=== PATIENT | female | born 1965 | race Caucasian/White ===

== ENCOUNTER → 2017-09-30 | Outpatient (CLI) | payer BC ==
--- NOTE | 2017-09-30 13:13 | US ---
EXAMINATION TYPE: US pelvic complete DATE OF EXAM: 09/30/2017 COMPARISON: NONE CLINICAL HISTORY: N93.8 Dysfunctional Uterine Bleeding. TECHNIQUE: . Transabdominal sonographic images of the pelvis were acquired. Transvaginal sonographi c images were medically necessary to better assess the following anatomy: EXAM MEASUREMENTS: Uterus: 10.8 x 5.3 6.4 cm Endometrial Stripe: 1.4 cm Right Ovary: 1.9 x 1.3 x 1.3 cm Left Ovary: 2.6 x1.4 x 1.4 cm 1. Uterus: multiple probable fibroids noted largest and most well-defined measuring 3.0 x 2.6 x 2.3 cm 2. Endometrium: Thickened 3. Right Ovary: wnl 4. Left Ovary: wnl 5. Bilateral Adnexa: wnl 6. Posterior cul-de-sac: wnl IMPRESSION: 1. Endometrial thickening measuring up to 1.4 cm. This could relate to endometrial hyperplasia, endom etrial carcinoma or endometrial polyp. Further evaluation with sonohysterogram or direct visualizatio n could be performed. 2. Enlarged and heterogenous uterus containing multiple probable leiomyomas with the largest measurin g 3.0 cm.
== END ==
LOC: RADUSWWP 12:22
PROVIDERS: ATTEND Family Medicine
DX: R93.8 Abnormal findings on diagnostic imaging of other specified body structures (principal); N85.2 Hypertrophy of uterus; N85.8 Other specified noninflammatory disorders of uterus
CPT/HCPCS: 76856

== ENCOUNTER → 2017-12-03 | Outpatient (CLI) | payer BC ==
[2017-12-03 11:20] LABS: HCT 31.6 % (34.0-46.0); HGB 10.4 gm/dL (11.4-16.0); Hypochromasia Moderate; MCH 25.7 pg (25.0-35.0); MCHC 32.7 g/dL (31.0-37.0); MCV 78.6 fL (80.0-100.0); Mean Platelet Volume 8.4; Platelet Count 335 k/uL (150-450); RBC 4.02 m/uL (3.80-5.40); RDW 15.2 % (11.5-15.5); WBC 5.8 k/uL (3.8-10.6)
[2017-12-03 11:28] LABS: Anion Gap 13 mmol/L; Blood Urea Nitrogen 19 mg/dL (7-17); Carbon Dioxide 18 mmol/L (22-30); Chloride 110 mmol/L (98-107); Glucose 91 mg/dL (74-99); Potassium 4.5 mmol/L (3.5-5.1); Sodium 141 mmol/L (137-145)
[2017-12-03 12:12] LABS: Basophils # (M) 0.06 k/uL (0-0.2); Eosinophils # (M) 0.12 k/uL (0-0.7); Monocytes # (M) 0.29 k/uL (0-1.0); Neutrophils # (M) 3.54 k/uL (1.3-7.7); Neutrophils % (M) 61 %; Nucleated Red Blood Cells 0 /100 WBC (0-0); Total Cells Counted 100
== END | disposition home or self-care (01) ==
LOC: LABWHC1 10:23
PROVIDERS: ATTEND Obstetrics & Gynecology
DX: Z01.812 Encounter for preprocedural laboratory examination (principal); N81.4 Uterovaginal prolapse, unspecified; D25.9 Leiomyoma of uterus, unspecified
CPT/HCPCS: 36415; 80051; 82565; 82947; 84520; 85025; 87086

== ENCOUNTER 2017-12-10 05:43 | Observation (INO) | payer BC ==
[2017-11-29 15:47] VITALS: BMI 25.3
[~2017-12-10 05:43] MED LIST: DEXAMETHASONE SOD PHOSPHATE 10 MG/ML 1 ML VIAL IV ONE; MIDAZOLAM 2 MG/2 ML VIAL IV PRN; ONDANSETRON ODT 4 MG TAB PO ONE; SCOPOLAMINE 1.5MG/72HR PATCH TRANSDERM ONE; ceFAZolin IN SWFI 2 GM/20 ML SYRINGE IVP ONE; fentaNYL (PF) 50 MCG/ML 2 ML AMP IV PRN
[2017-12-10] MEDS: LACTATED RINGERS 1,000 ML IV SCH ×3 (06:41→22:58)
[2017-12-10] MEDS ORDERED: LIDOCAINE 1% 20 ML VIAL (10MG/ML) FOR IV START INTRADERMA ONE (06:41)
[2017-12-10] MEDS ORDERED: ONDANSETRON 4 MG/2 ML VIAL IVP ONE (06:42)
[2017-12-10] MEDS ORDERED: fentaNYL (PF) 50 MCG/ML 2 ML AMP ONE (07:40)
[2017-12-10] MEDS ORDERED: PROPOFOL 10 MG/ML 20 ML VIAL IV ONE (07:40)
[2017-12-10] MEDS ORDERED: LIDOCAINE 1% INJ 10MG/ML (20 ML MDV) ONE (07:40)
[2017-12-10] MEDS ORDERED: MORPHINE SULFATE (PF) 0.3 MG/0.3 ML SYR ONE (07:40)
[2017-12-10] MEDS ORDERED: MIDAZOLAM 2 MG/2 ML VIAL ONE (07:40)
[2017-12-10] MEDS ORDERED: NALOXONE 0.4 MG/ML 1 ML VIAL IV PRN (07:58)
[2017-12-10] MEDS ORDERED: MORPHINE SULFATE 4 MG/ML SYRINGE IVP PRN (07:58)
[2017-12-10] MEDS ORDERED: ONDANSETRON 4 MG/2 ML VIAL IVP PRN (07:58)
[2017-12-10] MEDS ORDERED: KETOROLAC 30 MG/ML 1 ML VIAL IVP PRN ×2 (07:58→09:12)
[2017-12-10] MEDS ORDERED: BACITRACIN 500 UNIT/GM OINT 28.4 GM TUBE TOPICAL ONE (08:03)
[2017-12-10] MEDS ORDERED: VASOPRESSIN 20 UNIT/ML 1 ML VIAL SQ ONE (08:04)
[2017-12-10] MEDS ORDERED: LACTATED RINGERS 1,000 ML IV ONE (08:47)
--- NOTE | 2017-12-10 09:11 | P.OP ---
Date of Procedure: 12/10/17 Preoperative Diagnosis: Grade 3-4 rectocele, grade 2 uterine prolapse. Postoperative Diagnosis: Same, normal-appearing ovaries bilaterally Procedure(s) Performed: Vaginal hysterectomy, rectocele repair Anesthesia: spinal Surgeon: Alison Dangelo Gear Roller #1: Reese Gunn Estimated Blood Loss (ml): 100 IV fluids (ml): 850 Urine output (ml): 200 Pathology: other Condition: stable Disposition: PACU Description of Procedure: Patient is brought to the operating suite. She is given a spinal with Duramorph per the anesthesia staff, then positioned in the dorsal lithotomy position. The cervix, vagina, perineal bodies and lower abdomen are all prepped and draped in the usual sterile fashion. The appropriate timeout is performed to assure proper patient and procedural identification. Antibiotics are given. Urine hCG is negative. Weighted speculum was placed into the vagina and the anterior lip of the cervix is grasped with a double-tooth tenaculum. The cervix is injected circumferentially with a dilute Pitressin solution. Bladder is drained for 200 mL of clear yellow urine. A scalpel is used to incise circumferentially with a V like positioning at 6:00. A sponge rolled finger is used to sweep the mucosa from the underlying fascial plane. Peritoneum was easily entered at 6:00 and suture tied with 2-0 Vicryl. This is held with a hemostat and the large billed speculum was placed. At all times care is taken to keep the mucosa swept well from the underlying cook, to avoid any bladder and/or ureteral injury. Ina clamps are used in the uterosacral ligament complex these are clamped, cut, tied and held laterally with hemostats. Uterine vasculature is identified, clamped cut and suture ligated using 0 Vicryl suture. 2 additional pedicles are taken superior to the vessels. Anterior peritoneum is entered at 12:00. The uterus is " walked out", Ina clamps are used across the final pedicles. Hemostasis is excellent. 0 Vicryl suture is used to tie, flashed, and retied both pedicles. Bilateral ovaries are inspected and noted to be within normal limits, and therefore left in situ per her wishes. The speculum is then changed, the 2-0 Vicryl suture is brought around in a pursestring fashion. The previously held uterosacral cardinal ligament complex these are then brought across to incorporate the opposite complex as well as vaginal mucosa. 3 additional xblzmm-fs-kszsm sutures are used on the vaginal mucosa for final cuff closure. The rectocele repair is then started. Allis clamps are used on the perineal body at 5:00 and 7:00. A scalpel is used to remove a triangular portion of tissue. The posterior vaginal mucosa is injected with dilute Pitressin. Metzenbaum scissors are used in the midline to underlying the mucosa to the apex of the defect. The mucosa is opened with Metzenbaum scissors. The edges of the mucosa are held in a fanlike fashion with Allis clamps. A sponge rolled finger is used to sweep the fascial edges from the overlying mucosa. Metzenbaum scissors are used to trim the mucosa. 2- 0 Vicryl sutures used in the midline to bring the fascial edges together, thereby completely eliminating the rectocele. Approximation is excellent. 2-0 Vicryl is used then in a running locking stitch to close the posterior mucosa. 3 pairs finished in an episiotomy-like fashion. The vagina is clean and dry. It is packed with one-inch iodophor gauze with basic tracing. Terry is noted to be draining clear urine. The rectal exam is performed to assure no suture material in the rectal mucosa, and this is negative. Patient is brought back to the recovery room in very good condition with stable vital signs including a pulse of 69, blood pressure 95/48, 99% O2 saturation.
[2017-12-10] MEDS ORDERED: ZOLPIDEM 5 MG TAB PO PRN (09:12)
[2017-12-10] MEDS ORDERED: SIMETHICONE 80 MG CHEWABLE PO PRN (09:12)
[2017-12-10] MEDS ORDERED: METOCLOPRAMIDE 5 MG/ML 2 ML VIAL IVP PRN (09:12)
[2017-12-10] MEDS ORDERED: Acetaminophen-Codeine 300-30mg TAB PO PRN (09:12)
[2017-12-10] MEDS ORDERED: IBUPROFEN 600 MG TAB PO PRN (09:12)
[2017-12-10] MEDS: diphenhydrAMINE 50 MG/ML 1 ML VIAL IVP PRN ×2 (09:23→19:40)
[2017-12-10] MEDS ORDERED: NALBUPHINE 10 MG/ML AMPUL IV ONE (13:45)
[2017-12-10] MEDS ORDERED: ALPRAZolam 0.25 MG TAB PO PRN (13:56)
[2017-12-10] MEDS ORDERED: busPIRone HCl 10 MG TAB PO SCH (21:45)
[2017-12-10] MEDS ORDERED: TOPIRAMATE 25 MG TAB PO SCH (21:45)
[2017-12-10] MEDS ORDERED: lamoTRIgine 100 MG TAB PO SCH (21:45)
[2017-12-11] MEDS: diphenhydrAMINE 50 MG/ML 1 ML VIAL IVP PRN (03:26)
[2017-12-11 03:47] VITALS: RESP 16
--- NOTE | 2017-12-11 05:54 | P.PN ---
Progress Note - Text Progress Note Date: 12/11/17 Patient is status post vaginal hysterectomy postop day 1 with Intrathecal Duramorph. This morning, vital signs are stable, VAS is 3/10. The patient endorses minimal itching, denies nausea, vomiting, urinary retention, excessive sedation, respiratory depression, or headache. Patient has no complaints of back pain. Pain medications per primary service; please call back with any further questions.
[2017-12-11 06:17] VITALS: TEMP 98.2
--- NOTE | 2017-12-11 08:04 | P.DS ---
Providers Date of admission: 12/10/17 23:34 Expected date of discharge: 12/11/17 Attending physician: Alison Dangelo Primary care physician: Jamaal Worleyhven [facility] Course: This is a 52-year-old white female who presented with a history of increasingly symptomatic rectocele and uterine prolapse. After thorough consultation she elected to proceed with surgery. She was admitted under my care and underwent vaginal hysterectomy and rectocele repair on 12/10/2017. She did well intraoperatively, ovaries appeared normal and were left in situ per her wishes. She did receive a spinal with Duramorph. Please see dictated operative note for details. This morning the patient is doing well. She is voiding, ambulating and passing flatus without difficulty. Vital signs are stable and she is afebrile. Vaginal packing has been removed. Pain is well controlled. There is scant vaginal drainage. She is tolerating regular food and has showered. Extremities are negative, chest is clear, no CVA tenderness, soft abdomen with active bowel sounds. Patient is judged to be in very good condition for discharge home. She will follow-up with me in the office in 2 weeks. I have reminded her no intercourse , tampons or douching. She will use raoh-htu-bkvignp ibuprofen products as needed for pain, 3 200 mg pills, every 6 hours as needed. No heavy lifting, no driving for 2 weeks. Call with any pain not alleviated by ifot-jpi-deqssft products, with any vaginal bleeding, with any difficulties with bowel or bladder , or indeed with any concerns. Patient Condition at Discharge: Good Plan - Discharge Summary Discharge Rx Participant: Yes New Discharge Prescriptions: No Action lamoTRIgine [LaMICtal] 300 mg PO HS Topiramate [Topamax] 50 mg PO HS ALPRAZolam [Xanax] 0.25 mg PO HS PRN PRN Reason: sleeping busPIRone HCl [Buspar] 10 mg PO HS Discharge Medication List ALPRAZolam [Xanax] 0.25 mg PO HS PRN 12/03/17 [History] Topiramate [Topamax] 50 mg PO HS 12/03/17 [History] busPIRone HCl [Buspar] 10 mg PO HS 12/03/17 [History] lamoTRIgine [LaMICtal] 300 mg PO HS 12/03/17 [History] Follow up Appointment(s)/Referral(s): Alison Dangelo MD [STAFF PHYSICIAN] - 2 Weeks Patient Instructions/Handouts: Hysterectomy (DC), Hysterectomy (GEN)
[2017-12-11 09:21] VITALS: BP 99/58; PULSE 71
== END 2017-12-11 13:24 | disposition home or self-care (01) ==
LOC: OR 05:43 → 6PED 09:08 → OR 23:33 → 6PED 23:34
PROVIDERS: ADMIT Obstetrics & Gynecology; ATTEND Obstetrics & Gynecology
DX: N81.3 Complete uterovaginal prolapse (principal); D25.0 Submucous leiomyoma of uterus; N80.0 Endometriosis of uterus; D26.1 Other benign neoplasm of corpus uteri; J45.909 Unspecified asthma, uncomplicated; F41.9 Anxiety disorder, unspecified; K21.9 Gastro-esophageal reflux disease without esophagitis; Z79.899 Other long term (current) drug therapy; Z90.49 Acquired absence of other specified parts of digestive tract; Z91.048 Other nonmedicinal substance allergy status
CPT/HCPCS: 58260; 81025; 86900; 86901; 86850; 88307; G0378 ×2; J2250; J1200 ×2; J1100; J2300; J2405; J2001; J2274; J3010; J1885; J2704; J0690

== ENCOUNTER 2022-12-12 12:40 | Emergency (ER) | payer BC ==
[2022-12-12] MEDS ORDERED: SODIUM CHLORIDE 0.9% 500 ML 500 ML IV STA (13:23)
[2022-12-12] MEDS ORDERED: KETOROLAC 15 MG/ML 1 ML VIAL IVP STA (13:24)
--- NOTE | 2022-12-12 13:29 | ED ---
Nausea/Vomiting/Diarrhea HPI - General Chief complaint: Nausea/Vomiting/Diarrhea Stated complaint: Abd Pain, back pain Time Seen by Provider: 12/12/22 13:17 Source: patient, RN notes reviewed, old records reviewed Mode of arrival: ambulatory Limitations: no limitations - History of Present Illness Initial comments: This is a well-appearing 57-year-old female who presents ambulatory with complaints of right flank pain and suprapubic abdominal pain that started this morning after taking her son to school. Patient states that she does have nausea with multiple episodes of soft brown diarrhea 5 this morning. Denies any fevers. Patient states that she does take medication for her mood disorder but does not remember the name of the medication. States that she recently started taking it twice a day. Patient states that she does have a history of cholecystectomy, GERD and asthma. MD complaint: nausea, diarrhea, abdominal pain -: hour(s) Description of Diarrhea: other (soft brown) Associated Abdominal Pain: Yes (suprapubic) Severity scale (1-10): 10 Quality: constant Consistency: constant Improves with: bowel movement Worsens with: other (palpation) Associated Symptoms: other (right flank pain) - Related Data Home Medications Medication Instructions Recorded Confirmed Topiramate [Topamax] 100 mg PO HS 12/12/22 12/12/22 busPIRone HCl [Buspar] 5 mg PO HS 12/12/22 12/12/22 lamoTRIgine 200 mg PO HS 12/12/22 12/12/22 Allergies Allergy/AdvReac Type Severity Reaction Status Date / Time adhesive tape Allergy Itching,red Verified 12/12/22 14:54 ness Review of Systems ROS Statement: Those systems with pertinent positive or pertinent negative responses have been documented in the HPI. ROS Other: All systems not noted in ROS Statement are negative. Past Medical History Past Medical History: Asthma, GERD/Reflux History of Any Multi-Drug Resistant Organisms: None Reported Past Surgical History: Cholecystectomy, Tubal Ligation Additional Past Surgical History / Comment(s): tubal reversal, laparoscopy Past Anesthesia/Blood Transfusion Reactions: Motion Sickness, Postoperative Nausea & Vomiting (PONV) Additional Past Anesthesia/Blood Transfusion Reaction / Comment(s): trouble waking up Past Psychological History: Anxiety, Depression Smoking Status: Never smoker Past Alcohol Use History: Occasional Past Drug Use History: None Reported - Past Family History Mother Family Medical History: No Reported History General Exam Limitations: no limitations General appearance: alert, in no apparent distress Head exam: Present: atraumatic, normocephalic, normal inspection Eye exam: Present: normal appearance. Absent: scleral icterus, conjunctival injection, periorbital swelling Neck exam: Present: full ROM. Absent: tenderness, meningismus Respiratory exam: Absent: respiratory distress, accessory muscle use Cardiovascular Exam: Present: regular rate GI/Abdominal exam: Present: soft, tenderness (suprapubic). Absent: distended, guarding, rebound, rigid Extremities exam: Present: normal inspection, full ROM, normal capillary refill. Absent: tenderness, pedal edema Back exam: Present: full ROM. Absent: tenderness, CVA tenderness (R), CVA tende rness (L), rash noted Neurological exam: Present: alert, oriented X3, CN II-XII intact, normal gait Psychiatric exam: Present: normal affect, normal mood Skin exam: Present: warm, dry, normal color. Absent: cyanosis, diaphoretic, petechiae, pallor Course Vital Signs 12/12/22 12/12/22 13:02 16:54 Temperature 98.2 F 97.2 F L Pulse Rate 64 76 Respiratory 16 18 Rate Blood Pressure 108/68 110/67 O2 Sat by Pulse 98 99 Oximetry - Reevaluation(s) Reevaluation #1: 12/12/22 14:40 Patient states that she is feeling better after medications and IV fluids. Time: 14:40 Medical Decision Making - Medical Decision Making Patient presents with right flank pain and dysuria. States went to urgent care and diagnosed with UTI and prescribed antibiotics which she has not started. She was given IV fluids and Toradol with improvement in her symptoms. Labs show no evidence of leukocytosis. BUN and creatinine within normal limits. No evidence of UTI or blood in the urine CT shows a mild right hydronephrosis with a mild right hydroureter. There is a right UVJ 3 mm calcification noted. Vital signs are stable she is afebrile. She was prescribed Tylenol 3 starter pack. [place] and Flomax given in the emergency room She was discharged home to follow up with urology. Return if concerning symptoms. She is agreeable to this plan and care. Patient has history of asthma, GERD, cholecystectomy, anxiety and depression. Case discussed with Dr. Roskopp Was pt. sent in by a medical professional or institution (MAURICIO Harrison, MANAGER DAIRY, urgent care, hospital, or fdc...) When possible be specific @ -No Did you speak to anyone other than the patient for history (EMS, parent, family, police, friend...)? What history was obtained from this source @ -No Did you review nursing and triage notes (agree or disagree)? Why? @ -I reviewed and agree with nursing and triage notes Were old charts reviewed (outside hosp., previous admission, EMS record, old EKG, old radiological studies, urgent care reports/EKG's, fdc records)? Report findings @ -No old charts were reviewed Differential Diagnosis (chest pain, altered mental status, abdominal pain women, abdominal pain men, vaginal bleeding, weakness, fever, dyspnea, syncope, headache, dizziness, GI bleed, back pain, seizure, CVA, palpatations, mental health, musculoskeletal)? @ -UTI, kidney stone, viral gastroenteritis EKG interpreted by me (3pts min.). @ -n/a X-rays interpreted by me (1pt min.). @ -None done CT interpreted by me (1pt min.). @ -no U/S interpreted by me (1pt. min.). @ -None done What testing was considered but not performed or refused? (CT, X-rays, U/S, labs)? Why? @ -None What meds were considered but not given or refused? Why? @ -None Did you discuss the management of the patient with other professionals (professionals i.e. MAURICIO Harrison, MANAGER DAIRY, lab, RT, psych nurse, social worker assistant, bottle washer, teacher, sheriff's officer, case management coordinator)? Give summary @ -No Was smoking cessation discussed for >3mins.? @ -No Was critical care preformed (if so, how long)? @ -No Were there social determinants of health that impacted care today? How? (Homelessness, low income, unemployed, alcoholism, drug addiction, transportation, low edu. Level, literacy, decrease access to med. care, intermediate, rehab)? @ -No Was there de-escalation of care discussed even if they declined (Discuss DNR or withdrawal of care, Hospice)? DNR status @ -No What co-morbidities impacted this encounter? (DM, HTN, Smoking, COPD, CAD, Cancer, CVA, ARF, Chemo, Hep., AIDS, mental health diagnosis, sleep apnea, morbid obesity)? @ -Asthma, GERD, anxiety, depression Was patient admitted / discharged? Hospital course, mention meds given and route, prescriptions, significant lab abnormalities, going to OR and other pertinent info. @ -Discharged Undiagnosed new problem with uncertain prognosis? @ -No Drug Therapy requiring intensive monitoring for toxicity (Heparin, Nitro, I nsulin, Cardizem)? @ -No Were any procedures done? @ -No Diagnosis/symptom? @ -Right kidney stone, mild hydronephrosis and hydroureter Acute, or Chronic, or Acute on Chronic? @ -Acute Uncomplicated (without systemic symptoms) or Complicated (systemic symptoms)? @ -Uncomplicated Side effects of treatment? @ -No Exacerbation, Progression, or Severe Exacerbation? @ -No Poses a threat to life or bodily function? How? (Chest pain, [place], [place], pneumonia, PE, COPD, DKA, ARF, appy, cholecystitis, CVA, Diverticulitis, Homicidal, Suicidal, threat to staff... and all critical care pts) @ -No - Lab Data Result diagrams: 12/12/22 13:46 12/12/22 13:46 Lab Results 12/12/22 12/12/22 12/12/22 Range/Units 13:46 13:46 13:46 WBC 9.1 (3.8-10.6) k/uL RBC 4.88 (3.80-5.40) m/uL Hgb 14.4 (11.4-16.0) gm/dL Hct 44.4 (34.0-46.0) % MCV 91.1 (80.0-100.0) fL MCH 29.6 (25.0-35.0) pg MCHC 32.5 (31.0-37.0) g/dL RDW 13.4 (11.5-15.5) % Plt Count 267 (150-450) k/uL MPV 8.4 Neutrophils % 83 % Lymphocytes % 12 % Monocytes % 3 % Eosinophils % 1 % Basophils % 0 % Neutrophils # 7.5 (1.3-7.7) k/uL Lymphocytes # 1.1 (1.0-4.8) k/uL Monocytes # 0.3 (0-1.0) k/uL Eosinophils # 0.1 (0-0.7) k/uL Basophils # 0.0 (0-0.2) k/uL Sodium 140 (137-145) mmol/L Potassium 4.3 (3.5-5.1) mmol/L Chloride 105 (98-107) mmol/L Carbon Dioxide 21 L (22-30) mmol/L Anion Gap 14 mmol/L BUN 25 H (7-17) mg/dL Creatinine 0.84 (0.52-1.04) mg/dL Est GFR (CKD-EPI)AfAm 89 (>60 ml/min/1.73 sqM) Est GFR (CKD-EPI)NonAf 77 (>60 ml/min/1.73 sqM) Glucose 125 H (74-99) mg/dL Calcium 9.5 (8.4-10.2) mg/dL Total Bilirubin 0.6 (0.2-1.3) mg/dL AST 32 (14-36) U/L ALT 34 (4-34) U/L Alkaline Phosphatase 90 (38-126) U/L Total Protein 7.5 (6.3-8.2) g/dL Albumin 4.7 (3.5-5.0) g/dL Amylase 81 (30-110) U/L Lipase 162 (23-300) U/L Urine Color Yellow Urine Appearance Clear (Clear) Urine pH 6.0 (5.0-8.0) Ur Specific [place] 1.019 (1.001-1.035) Urine Protein Trace H (Negative) Urine Glucose (UA) Negative (Negative) Urine Ketones 1+ H (Negative) Urine Blood Negative (Negative) Urine Nitrite Negative (Negative) Urine Bilirubin Negative (Negative) Urine Urobilinogen <2.0 (<2.0) mg/dL Ur Leukocyte Esterase Negative (Negative) Disposition Clinical Impression: Renal calculus, right Disposition: HOME SELF-CARE Condition: Good Instructions (If sedation given, give patient instructions): Kidney Stones (ED), Acute Diarrhea (ED) Additional Instructions: Increase your fluid intake. Take Motrin as needed for pain and discomfort. Follow-up with urology. Return to the emergency room with any new or concerning symptoms. Is patient prescribed a controlled substance at d/c from ED?: No Referrals: None,Stated [REFERRING] - 1-2 days Joss Putnam MD [STAFF PHYSICIAN] - 1-2 days Time of Disposition: 16:30
[2022-12-12 13:57] LABS: Basophils % (A) 0 %; Eosinophils # (A) 0.1 k/uL (0-0.7); Eosinophils % (A) 1 %; HCT 44.4 % (34.0-46.0); HGB 14.4 gm/dL (11.4-16.0); Lymphocytes # (A) 1.1 k/uL (1.0-4.8); Lymphocytes % (A) 12 %; MCH 29.6 pg (25.0-35.0); MCHC 32.5 g/dL (31.0-37.0); MCV 91.1 fL (80.0-100.0); Mean Platelet Volume 8.4; Monocytes # (A) 0.3 k/uL (0-1.0); Monocytes % (A) 3 %; Neutrophils # (A) 7.5 k/uL (1.3-7.7); Neutrophils % (A) 83 %; Platelet Count 267 k/uL (150-450); RBC 4.88 m/uL (3.80-5.40); RDW 13.4 % (11.5-15.5); WBC 9.1 k/uL (3.8-10.6)
[2022-12-12 14:20] LABS: Albumin 4.7 g/dL (3.5-5.0); Calcium 9.5 mg/dL (8.4-10.2); Total Bilirubin 0.6 mg/dL (0.2-1.3); Total Protein 7.5 g/dL (6.3-8.2)
[2022-12-12 14:21] LABS: Appearance,Urine Clear (Clear); Bilirubin,Urine Negative (Negative); Blood,Urine Negative (Negative); Color,Urine Yellow; Glucose,Urine (UA) Negative (Negative); Ketones,Urine 1+ (Negative); Leukocyte Esterase,Urine Negative (Negative); Nitrite,Urine Negative (Negative); Potassium 4.3 mmol/L (3.5-5.1); Protein,Urine Trace (Negative); Specific Gravity,Urine 1.019 (1.001-1.035); Urobilinogen,Urine <2.0 mg/dL (<2.0)
--- NOTE | 2022-12-12 15:54 | CT ---
EXAMINATION TYPE: CT abdomen pelvis wo con DATE OF EXAM: 12/12/2022 COMPARISON: None INDICATION: right flank pain, dysuria DLP: 434.1 mGycm, Automated exposure control for dose reduction was used. CONTRAST: 0 mL of Isovue 300. Study performed without Oral Contrast TECHNIQUE: Axial images were obtained from above the diaphragm to the pubic rami in the axial plane a t 5 mm thick sections. Reconstructed images are reviewed on the computer in the coronal plane. FINDINGS: Limited CT sections are obtained the lung bases. The lung bases are clear. CT ABDOMEN: Liver: Normal Spleen: Normal Pancreas: Normal Adrenal glands: The adrenal glands are normal. Gallbladder: Normal Kidneys: No masses are evident. There is a mild right hydronephrosis. Some mild right hydroureter is present. At the right ureterovesical junction there is a 0.3 cm calcification. No cysts are present. Aorta: Normal Inferior vena cava: Normal. CT PELVIS: Loops of bowel within the abdomen and pelvis are normal. The study is without oral contrast limit ing bowel evaluation. Appendix: Normal as visualized. Urinary bladder: Decompressed with some limitation. Genitourinary structures: Uterus and ovaries are not identified. Osseous structures: No suspicious lytic or sclerotic lesions. IMPRESSIONS: 1. 0.3 cm obstructing right ureterovesical junction stone with mild right hydronephrosis and mild hy droureter.
[2022-12-12] MEDS ORDERED: HYDROcodone/APAP 5-325MG 1 EACH TAB PO STA (16:17)
[2022-12-12] MEDS ORDERED: TAMSULOSIN 0.4 MG CAP.ER.24H PO STA (16:29)
[2022-12-12] MEDS ORDERED: ACET/COD 300 MG/30 MG STARTER PACK 6 TAB BTL PO STA (16:29)
[2022-12-12 16:55] VITALS: BP 110/67; PULSE 76; RESP 18; TEMP 97.2
== END 2022-12-12 17:00 | disposition home or self-care (01) ==
LOC: EC 12:40
DX: N13.2 Hydronephrosis with renal and ureteral calculous obstruction (principal); J45.909 Unspecified asthma, uncomplicated; F41.9 Anxiety disorder, unspecified; F32.A Depression, unspecified; Z79.899 Other long term (current) drug therapy; Z90.49 Acquired absence of other specified parts of digestive tract; Z91.09 Other allergy status, other than to drugs and biological substances
CPT/HCPCS: 36415; 80053; 82150; 83690; 85025; 81003; 74176; 99284; 96374; 96361 ×3; J1885